=== PATIENT | male | born 1975 | race Caucasian/White ===

== ENCOUNTER → 2019-06-26 09:15 | Outpatient (CLI) | payer OTHER ==
[~2019-06-26 09:15] MED LIST: NABUMETONE500 MG PO; PERCOCET 5/3251 TAB PO
== END | disposition home or self-care (01) ==
LOC: LAB 09:15
DX: D68.8 Other specified coagulation defects (principal); E78.2 Mixed hyperlipidemia; N39.0 Urinary tract infection, site not specified; R07.89 Other chest pain